=== PATIENT | female | born 1995 | race Caucasian/White ===

== ENCOUNTER 2019-06-03 22:34 | Inpatient (IN) | payer OTHER ==
[~2019-06-03] VITALS: Ht 152.4 cm; Wt 65.8 kg
[2019-06-04] MEDS ORDERED: PREN-380 PO (00:15)
[2019-06-04] MEDS ORDERED: FERR-252 PO (00:16)
[2019-06-04] MEDS ORDERED: CARBOPROST 250 MCG/ML AMP IM PRN (00:20)
[2019-06-04] MEDS ORDERED: AMPICILLIN 2,000 MG in NACL 0.9% MINI-BAG PLUS 100 ML IV SCH (00:20)
[2019-06-04] MEDS ORDERED: LACTATED RINGERS 500 ML IV ONE (00:20)
[2019-06-04] MEDS ORDERED: METHYLERGONOVINE 0.2 MG/ML AMP IM PRN ×2 (00:20→10:35)
[2019-06-04] MEDS ORDERED: AMPICILLIN 2,000 MG VIAL ONE (00:42)
[2019-06-04 00:46] LABS: BASOPHILS % (AUTO) 0.5 % (0.0-2.0); EOSINOPHILS # (AUTO) 0.1 K/uL (0-0.4); EOSINOPHILS % (AUTO) 1.5 % (0.0-4.0); HEMATOCRIT 30.7 % (36-48); HEMOGLOBIN 10.4 g/dL (12.0-16.0); LYMPHOCYTES # (AUTO) 2.2 K/uL (2.5-16.5); LYMPHOCYTES % (AUTO) 26.8 % (20.5-51.1); MEAN CORPUSCULAR HEMOGLOBIN 29 pg (27-31); MEAN CORPUSCULAR HGB CONC 34 g/dL (33-37); MEAN CORPUSCULAR VOLUME 84.1 fL (80-94); MONOCYTES # (AUTO) 0.8 K/uL (0.8-1.0); MONOCYTES % (AUTO) 10.2 % (1.7-9.3); NEUTROPHILS # (AUTO) 5.1 K/uL (1.8-7.7); PLATELET COUNT (AUTO) 153 K/uL (140-450); RED BLOOD CELL COUNT(AUTO) 3.65 MIL/uL (4.20-5.40); RED CELL DISTRIBUTION WIDTH 14.1 % (11.6-13.7); WHITE BLOOD COUNT (AUTO) 8.3 K/uL (4.8-10.8)
[2019-06-04] MEDS ORDERED: LACTATED RINGERS 500 ML IV SCH (00:55)
[2019-06-04] MEDS: LACTATED RINGERS 1,000 ML IV SCH ×2 (01:00→08:00)
[2019-06-04 01:11] LABS: ALBUMIN 2.7 g/dL (3.4-5.0); ANION GAP 13.9 (8-16); CREATININE 0.6 mg/dL (0.6-1.3); POTASSIUM 3.9 mmol/L (3.5-5.1); TOTAL BILIRUBIN 0.4 mg/dL (0.0-1.0)
[2019-06-04 01:16] LABS: APPEARANCE,URINE CLEAR (CLEAR); BILIRUBIN,URINE NEGATIVE (NEGATIVE); BLOOD, URINE NEGATIVE (NEGATIVE); COLOR,URINE YELLOW (YELLOW); LEUKOCYTE ESTERASE ,URINE TRACE (NEGATIVE); NITRITE, URINE NEGATIVE (NEGATIVE); PH,URINE 7.5 (5.0-9.0); UGLUCOSE NEGATIVE (NEGATIVE)
[2019-06-04 01:50] LABS: RBC,URINE 0-5 /HPF (0-5); WBC,URINE 0-5 /HPF (0-5)
[2019-06-04] MEDS ORDERED: MISOPROSTOL 25 MCG TAB ONE (02:16)
[2019-06-04] MEDS ORDERED: AMPICILLIN 1,000 MG VIAL ONE ×2 (04:34→08:25)
[2019-06-04] MEDS: AMPICILLIN 1,000 MG in NACL 0.9% MINI-BAG PLUS 50 ML IV SCH ×2 (04:55→08:40)
[2019-06-04] MEDS ORDERED: MISOPROSTOL 25 MCG TAB VG SCH (06:00)
[2019-06-04] MEDS ORDERED: fentaNYL 0.05 MG/ML VIAL IVP SCH (07:50)
[2019-06-04] MEDS ORDERED: fentaNYL 0.05 MG/ML VIAL ONE (07:53)
[2019-06-04] MEDS ORDERED: ROPIVACAINE 0.2%/NS PREMIX 200 ML EPI ONE (08:04)
--- NOTE | 2019-06-04 08:27 | NUR ---
PATIENT HAS BEEN SCREENED AND CATEGORIZED LOW NUTRITION RISK. PATIENT WILL BE SEEN WITHIN 7 DAYS OF ADMISSION. 06/10/[address]
[2019-06-04] MEDS ORDERED: OXYTOCIN 20 UNITS/LR PREMIX 1,000 ML IV ONE (09:39)
[2019-06-04] MEDS ORDERED: OXYTOCIN 20 UNITS in LACTATED RINGERS 1,000 ML IV SCH (09:40)
[2019-06-04] MEDS ORDERED: BENZOCAINE/MENTHOL 20%-0.5% 60 GM CAN TP PRN (10:35)
[2019-06-04] MEDS ORDERED: METHYLERGONOVINE 0.2 MG TAB PO PRN (10:35)
[2019-06-04] MEDS ORDERED: IBUPROFEN 800 MG TAB PO PRN (10:35)
[2019-06-04] MEDS ORDERED: DOCUSATE SODIUM 100 MG GELCAP PO PRN (10:35)
[2019-06-04] MEDS ORDERED: MEASLES, MUMPS, AND RUBELLA 1 VIAL SQVAC PRN (10:35)
[2019-06-04] MEDS ORDERED: SIMETHICONE 80 MG TAB.CHEW PO PRN (10:35)
[2019-06-04] MEDS ORDERED: BISACODYL 5 MG TABEC PO PRN (10:35)
[2019-06-04] MEDS ORDERED: IBUPROFEN 600 MG TAB PO PRN ×2 (10:35)
[2019-06-04] MEDS ORDERED: OXYTOCIN 10 UNITS/ML VIAL IM PRN (10:35)
[2019-06-05 09:45] LABS: HEMATOCRIT 30.2 % (36-48); HEMOGLOBIN 10.1 g/dL (12.0-16.0)
== END 2019-06-05 14:00 | disposition home or self-care (01) | DRG 560 ==
LOC: MLD 22:34 → MFCC 06-04 12:19
PROVIDERS: ADMIT Obstetrics & Gynecology; ATTEND Obstetrics & Gynecology
PROC: 10E0XZZ Delivery of Products of Conception, External Approach (ICD-10-PCS; principal; 2019-06-04)
PROC: 10907ZC Drainage of Amniotic Fluid, Therapeutic from Products of Conception, Via Natural or Artificial Opening (ICD-10-PCS; 2019-06-04)
PROC: 3E0P7VZ Introduction of Hormone into Female Reproductive, Via Natural or Artificial Opening (ICD-10-PCS; 2019-06-04)
PROC: 3E0R3BZ Introduction of Anesthetic Agent into Spinal Canal, Percutaneous Approach (ICD-10-PCS; 2019-06-04)
PROC: 00HU33Z Insertion of Infusion Device into Spinal Canal, Percutaneous Approach (ICD-10-PCS; 2019-06-04)
PROC: 3E0234Z Introduction of Serum, Toxoid and Vaccine into Muscle, Percutaneous Approach (ICD-10-PCS; 2019-06-04)
PROC: 3E0134Z Introduction of Serum, Toxoid and Vaccine into Subcutaneous Tissue, Percutaneous Approach (ICD-10-PCS; 2019-06-04)
DX: O99.824 Streptococcus B carrier state complicating childbirth (principal); Z23 Encounter for immunization; Z37.0 Single live birth; Z3A.39 39 weeks gestation of pregnancy
CPT/HCPCS: 36415; 51702; 59200; 59409; 76815; 80053; 81001; 85018; 85025; 86592; 86762; 86886; 86900; 86901; 87086; J0290; J2590; J2795; J3010; J7120

== ENCOUNTER 2020-09-04 22:08 | Inpatient (IN) | payer OTHER, SELFPAY ==
[~2020-09-04] VITALS: Ht 152.4 cm; Wt 56.7 kg
[~2020-09-04 22:08] MED LIST: FERR-252 PO; PREN-380 PO
[2020-09-05] MEDS ORDERED: METHYLERGONOVINE 0.2 MG TAB PO PRN ×2 (00:20→07:40)
[2020-09-05] MEDS ORDERED: METHYLERGONOVINE 0.2 MG/ML AMP IM PRN ×3 (00:20→07:40)
[2020-09-05] MEDS ORDERED: BENZOCAINE/MENTHOL 20%-0.5% 60 GM CAN TP PRN ×2 (00:20→07:40)
[2020-09-05] MEDS ORDERED: CARBOPROST 250 MCG/ML AMP IM PRN (00:20)
[2020-09-05] MEDS ORDERED: OXYTOCIN 10 UNITS/ML VIAL IM PRN ×2 (00:20→07:40)
[2020-09-05] MEDS ORDERED: IBUPROFEN 800 MG TAB PO PRN ×2 (00:20→07:40)
[2020-09-05] MEDS ORDERED: MEASLES, MUMPS, AND RUBELLA 1 VIAL SQVAC ONE (00:20)
[2020-09-05 00:57] LABS: BASOPHILS % (AUTO) 0.6 % (0.0-2.0); EOSINOPHILS # (AUTO) 0.2 K/uL (0-0.4); EOSINOPHILS % (AUTO) 2.1 % (0.0-4.0); HEMOGLOBIN 10.7 g/dL (12.0-16.0); LYMPHOCYTES # (AUTO) 2.8 K/uL (2.5-16.5); MEAN CORPUSCULAR HEMOGLOBIN 28 pg (27-31); MEAN CORPUSCULAR HGB CONC 33 g/dL (33-37); MEAN CORPUSCULAR VOLUME 82.6 fL (80-94); MONOCYTES # (AUTO) 0.6 K/uL (0.8-1.0); MONOCYTES % (AUTO) 7.3 % (1.7-9.3); NEUTROPHILS # (AUTO) 5.1 K/uL (1.8-7.7); PLATELET COUNT (AUTO) 195 K/uL (140-450); RED BLOOD CELL COUNT(AUTO) 3.88 MIL/uL (4.20-5.40); RED CELL DISTRIBUTION WIDTH 15.5 % (11.6-13.7); WHITE BLOOD COUNT (AUTO) 8.8 K/uL (4.8-10.8)
[2020-09-05] MEDS: LACTATED RINGERS 1,000 ML IV SCH ×2 (01:00→03:53)
[2020-09-05 01:14] LABS: APPEARANCE,URINE CLEAR (CLEAR); BILIRUBIN,URINE NEGATIVE (NEGATIVE); BLOOD, URINE NEGATIVE (NEGATIVE); COLOR,URINE YELLOW (YELLOW); LEUKOCYTE ESTERASE ,URINE NEGATIVE (NEGATIVE); NITRITE, URINE NEGATIVE (NEGATIVE); PH,URINE 6.5 (5.0-9.0); UGLUCOSE NEGATIVE (NEGATIVE)
[2020-09-05 01:16] LABS: ALBUMIN 2.9 g/dL (3.4-5.0); ANION GAP 13.1 (8-16); CARBON DIOXIDE 21.3 mmol/L (21-32); CREATININE 0.6 mg/dL (0.6-1.3); POTASSIUM 3.4 mmol/L (3.5-5.1); TOTAL BILIRUBIN 0.4 mg/dL (0.0-1.0)
[2020-09-05] MEDS ORDERED: OXYTOCIN 20 UNITS/LR PREMIX 1,000 ML IV ONE (01:22)
[2020-09-05] MEDS ORDERED: OXYTOCIN 20 UNITS in LACTATED RINGERS 1,000 ML IV SCH (01:25)
[2020-09-05] MEDS ORDERED: LIDOCAINE 2% 100 MG/5 ML SYR IVP ONE (04:44)
[2020-09-05] MEDS ORDERED: fentaNYL citrate 0.05 MG/ML VIAL ONE (04:47)
[2020-09-05] MEDS ORDERED: ROPIVACAINE 0.2%/NS PREMIX 200 ML EPI ONE (04:48)
--- NOTE | 2020-09-05 07:08 | NUR ---
PATIENT HAS BEEN SCREENED AND CATEGORIZED LOW NUTRITION RISK. PATIENT WILL BE SEEN WITHIN 7 DAYS OF ADMISSION. 09/11/[address]
[2020-09-05] MEDS ORDERED: DOCUSATE SODIUM 100 MG GELCAP PO PRN (07:40)
[2020-09-05] MEDS ORDERED: bisacodyL 5 MG TABEC PO PRN (07:40)
[2020-09-05] MEDS ORDERED: IBUPROFEN 600 MG TAB PO PRN (07:40)
[2020-09-05] MEDS ORDERED: SIMETHICONE 80 MG TAB.CHEW PO PRN (07:40)
[2020-09-05] MEDS ORDERED: diphenhydrAMINE 50 MG/ML VIAL IVP SCH (09:10)
[2020-09-05] MEDS ORDERED: oxyCODONE/APAP 5/325 MG 1 TAB TAB PO PRN (23:35)
[2020-09-06 05:35] LABS: HEMATOCRIT 30.9 % (36-48); HEMOGLOBIN 10.2 g/dL (12.0-16.0)
== END 2020-09-06 12:30 | disposition home or self-care (01) | DRG 560 ==
LOC: MLD 22:08 → MFCC 09-05 10:30
PROVIDERS: ADMIT Obstetrics & Gynecology; ATTEND Obstetrics & Gynecology
PROC: 10E0XZZ Delivery of Products of Conception, External Approach (ICD-10-PCS; principal; 2020-09-05)
PROC: 3E0DXGC Introduction of Other Therapeutic Substance into Mouth and Pharynx, External Approach (ICD-10-PCS; 2020-09-05)
DX: O77.0 Labor and delivery complicated by meconium in amniotic fluid (principal); Z20.822 Contact with and (suspected) exposure to COVID-19; Z3A.39 39 weeks gestation of pregnancy; Z37.0 Single live birth
CPT/HCPCS: 36415; 51702; 59409; 76815; 80053; 81003; 85018; 85025; 86592; 86762; 86886; 86900; 86901; J1200; J2001; J2590; J2795; J3010